=== PATIENT | male | born 1975 | race African-American/Black ===

== ENCOUNTER 2017-08-26 19:24 | Emergency (ER) | payer MEDICARE, MEDICAID ==
[~2017-08-26] VITALS: Ht 167.6 cm; Wt 75.1 kg
[2017-08-26 19:32] VITALS: BP 121/77
[2017-08-26] MEDS ORDERED: AMLO10TA2 PO (20:05)
[2017-08-26] MEDS ORDERED: METF500T4 PO (20:06)
[2017-08-26] MEDS ORDERED: CYCL5TAB PO (20:06)
[2017-08-26] MEDS ORDERED: ADAL20KI INJ (20:06)
== END 2017-08-26 21:53 | disposition home or self-care (01) ==
LOC: ED 20:51
DX: J20.8 Acute bronchitis due to other specified organisms (principal); J00 Acute nasopharyngitis [common cold]; B97.89 Other viral agents as the cause of diseases classified elsewhere; I10 Essential (primary) hypertension; E11.9 Type 2 diabetes mellitus without complications
CPT/HCPCS: 71046; 99284

== ENCOUNTER 2018-02-25 14:03 | Emergency (ER) | payer MEDICARE, MEDICAID ==
[~2018-02-25] VITALS: Ht 165.1 cm; Wt 75.0 kg
[~2018-02-25 14:03] MED LIST: ADAL20KI INJ; AMLO10TA6 PO; CYCL5TAB PO; METF500T17 PO
[2018-02-25 14:19] VITALS: BP 119/70
[2018-02-25] MEDS ORDERED: KETOROLAC 30 MG/1 ML ONE (14:39)
[2018-02-25] MEDS ORDERED: KETOROLAC 30 MG/1 ML IM ONE (15:00)
== END 2018-02-25 15:17 | disposition home or self-care (01) ==
LOC: ED 14:51
DX: S90.31XA Contusion of right foot, initial encounter (principal); X50.1XXA Overexertion from prolonged static or awkward postures, initial encounter; Y93.9 Activity, unspecified; Y92.009 Unspecified place in unspecified non-institutional (private) residence as the place of occurrence of the external cause; Y99.8 Other external cause status
CPT/HCPCS: 73630; 96372; 99284; J1885

== ENCOUNTER → 2018-05-03 | Outpatient (CLI) | payer MEDICARE, MEDICAID | END | disposition home or self-care (01) | LOC: RAD 13:58 | PROVIDERS: ATTEND Family Medicine | DX: M50.322 Other cervical disc degeneration at C5-C6 level (principal) | CPT/HCPCS: 72040 ==

== ENCOUNTER → 2018-06-03 | Outpatient (CLI) | payer MEDICARE, MEDICAID | END | disposition home or self-care (01) | LOC: RAD 16:10 | PROVIDERS: ATTEND Physical Medicine & Rehabilitation | DX: M47.812 Spondylosis without myelopathy or radiculopathy, cervical region (principal); M25.78 Osteophyte, vertebrae; M45.7 Ankylosing spondylitis of lumbosacral region | CPT/HCPCS: 72040; 72072; 72100 ==

== ENCOUNTER 2020-08-11 02:17 | Emergency (ER) | payer BC, MEDICAID, MEDICARE ==
[~2020-08-11] VITALS: Ht 167.6 cm; Wt 77.0 kg
[~2020-08-11 02:17] MED LIST changes: +AMLO-211 PO; -AMLO10TA6 PO
[2020-08-11 02:22] VITALS: BP 143/95
[2020-08-11] MEDS ORDERED: FLUORESCEIN OPHTHALMIC 1 MG STRIP EACHEYE ONE (02:30)
[2020-08-11] MEDS ORDERED: PROPARACAINE OPHTH 0.5%, 15ML EACHEYE ONE (02:30)
[2020-08-11] MEDS ORDERED: FLUORESCEIN OPHTHALMIC 1 MG STRIP ONE (02:42)
[2020-08-11] MEDS ORDERED: PROPARACAINE OPHTH 0.5%, 15ML ONE (02:42)
--- NOTE | 2020-08-11 02:46 | NUR ---
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 VA'S DONE, NO DEFICITS, ERP AWARE AND AT BEDSIDE
== END 2020-08-11 03:10 | disposition home or self-care (01) ==
LOC: ED 02:47
DX: S05.01XA Injury of conjunctiva and corneal abrasion without foreign body, right eye, initial encounter (principal); I10 Essential (primary) hypertension; E11.9 Type 2 diabetes mellitus without complications; X58.XXXA Exposure to other specified factors, initial encounter; Y93.89 Activity, other specified; Y92.89 Other specified places as the place of occurrence of the external cause; Y99.8 Other external cause status
CPT/HCPCS: 99283

== ENCOUNTER 2020-09-05 11:41 | Emergency (ER) | payer BC ==
[~2020-09-05] VITALS: Ht 167.6 cm; Wt 73.3 kg
[2020-09-05 11:57] VITALS: BP 114/72
== END 2020-09-05 13:37 | disposition home or self-care (01) ==
LOC: ED 13:17
DX: S93.492A Sprain of other ligament of left ankle, initial encounter (principal); W18.30XA Fall on same level, unspecified, initial encounter; Y93.89 Activity, other specified; Y92.89 Other specified places as the place of occurrence of the external cause; Y99.8 Other external cause status
CPT/HCPCS: 99283